=== PATIENT | female | born 1995 | race Caucasian/White ===

== ENCOUNTER → 2017-07-18 | Outpatient (CLI) | payer BC | END | disposition home or self-care (01) | LOC: C.PAPS 11:30 | PROVIDERS: ATTEND Family Medicine | DX: Z12.72 Encounter for screening for malignant neoplasm of vagina (principal) ==

== ENCOUNTER → 2017-07-18 | Outpatient (CLI) | payer BC ==
[2017-07-20 01:58] LABS: CHLAMYDIA TRACH RNA*** NOT DETECTED (NOT DETECTED); GC (NEIS GONORRHOEAE)RNA** NOT DETECTED (NOT DETECTED)
--- NOTE | 2017-07-26 12:12 | CODING QUERY NO DIAGNOSIS ---
TREATMENT RENDERED WITHOUT A DIAGNOSIS To promote full compliance with coding requirements relating to patient care, physician participation is requested in all cases of ict help desk officer uncertainty. Please assist us with providing a diagnosis/symptom for the test(s) below: A diagnosis/symptom was not documented on your Order. A valid diagnosis/symptom is required to bill all insurances. Please remember that we are unable to code a diagnosis of rule out, probable, possible, questionable, or suspected. Tests that require a diagnosis: DOS: 07/18/17 * CHLAM AND GC RNA DIAGNOSIS: Provider Signature: Date: Thank you Randi Rosales [email or web address] Once completed, please kindly fax back to [phone] For questions please call [phone]
== END | disposition home or self-care (01) ==
LOC: C.LABSPEC 11:05
PROVIDERS: ATTEND Family Medicine
DX: Z20.2 Contact with and (suspected) exposure to infections with a predominantly sexual mode of transmission (principal); Z12.72 Encounter for screening for malignant neoplasm of vagina

== ENCOUNTER → 2017-08-27 | Outpatient (CLI) | payer BC ==
[2017-09-04 16:57] LABS: O&P SOURCE OTHER-STOOL
== END | disposition home or self-care (01) ==
LOC: C.LABBC 12:41
PROVIDERS: ATTEND Family Medicine
DX: K92.1 Melena (principal)

== ENCOUNTER → 2017-09-20 | Outpatient (CLI) | payer BC | END | disposition home or self-care (01) | LOC: C.LABBC 13:25 | PROVIDERS: ATTEND Internal Medicine Infectious Disease | DX: A09 Infectious gastroenteritis and colitis, unspecified (principal) ==